=== PATIENT | female | born 1985 | race Two or more races ===

== ENCOUNTER 2022-06-22 05:35 | Day surgery (SDC) | payer OTHER | END 2022-06-22 09:35 | disposition home or self-care (01) | LOC: AMB-ENDOS 05:35 → CIR.AMB 14:30 | PROVIDERS: ATTEND Surgery | DX: D13.1 Benign neoplasm of stomach (principal); K29.70 Gastritis, unspecified, without bleeding; Z20.822 Contact with and (suspected) exposure to COVID-19; K44.9 Diaphragmatic hernia without obstruction or gangrene; E66.01 Morbid (severe) obesity due to excess calories; I10 Essential (primary) hypertension; E03.9 Hypothyroidism, unspecified; E78.00 Pure hypercholesterolemia, unspecified; E78.5 Hyperlipidemia, unspecified; Z88.0 Allergy status to penicillin; Z88.6 Allergy status to analgesic agent ==